=== PATIENT | female | born 1955 | race Caucasian/White ===

== ENCOUNTER → 2022-01-24 10:11 | Outpatient (CLI) | payer MEDICARE, SELFPAY ==
--- NOTE | 2022-01-24 | DI.US_ITS ---
Exam(s) US LOWER EXTREMITY VENOUS RT EXAM: US LOWER EXTREMITY VENOUS RT CLINICAL HISTORY: RT LEG SWELLING, BREAST CA, M79.89, ? DVT TECHNIQUE: Right lower extremity venous ultrasound performed using grayscale, color-flow, and spectr al Doppler analysis. COMPARISON: No exams were available for comparison FINDINGS: The right common femoral, femoral and popliteal veins demonstrate normal compressibility, augmentatio n, and color Doppler. The posterior tibial veins are patent. There is thrombus seen in the greater s aphenous vein measuring 32 cm in length. The thrombus proximally is 0.4 cm from the saphenofemoral j unction. There is a 5.1 x 2.4 x 4.6 cm popliteal cyst. The soft tissues are unremarkable. IMPRESSION: 1. No evidence of a right lower extremity DVT. 2. Superficial thrombus in the right greater saphenous vein measuring 32 cm in length. Proximally, i t lies 0.4 cm from the saphenofemoral junction. 3. Popliteal cyst. DATA REPOSITORY:
== END ==
PROVIDERS: Visit Provider Preventive Medicine Undersea and Hyperbaric Medicine
DX: I82.811 Embolism and thrombosis of superficial veins of right lower extremity (principal); M71.21 Synovial cyst of popliteal space [Baker], right knee
CPT/HCPCS: 93971

== ENCOUNTER 2022-03-29 02:12 | Outpatient (CLI) | payer MEDICARE, SELFPAY ==
--- NOTE | 2022-03-29 | DI.US_ITS ---
Exam(s) US LOWER EXTREMITY VENOUS RT EXAM: US LOWER EXTREMITY VENOUS RT CLINICAL HISTORY: SWELLING RT LEG R60.9 S/P RADIOTHERAPY Z92.3 R/O DVT TECHNIQUE: Right lower extremity venous ultrasound performed using grayscale, color-flow, and spectr al Doppler analysis. COMPARISON: US US LOWER EXTREMITY VENOUS RT from 01/24/2022 FINDINGS: The right common femoral, femoral and popliteal veins demonstrate normal compressibility, augmentatio n, and color Doppler. The posterior tibial veins are patent. The saphenofemoral junction is unremark able. There is again seen a Zuñiga cyst. The soft tissues are unremarkable. IMPRESSION: No evidence of a right lower extremity DVT. DATA REPOSITORY:
== END 2022-03-29 02:32 ==
LOC: DI 02:12
PROVIDERS: Visit Provider Radiology Radiation Oncology
DX: R60.9 Edema, unspecified (principal); Z92.3 Personal history of irradiation
CPT/HCPCS: 93971